=== PATIENT | female | born 1960 | race Caucasian/White ===

== ENCOUNTER → 2024-11-17 10:03 | Outpatient (REF) | payer OTHER, SELFPAY | LOC: RST 10:03 | PROVIDERS: ATTENDING PHYSICIAN Internal Medicine; FAMILY PHYSICIAN Registered Nurse | DX: R13.19 Other dysphagia (principal) | CPT/HCPCS: 74230; 92611 ==

== ENCOUNTER → 2024-12-12 11:42 | Outpatient (REF) | payer OTHER, SELFPAY | LOC: DHSLP 11:42 | PROVIDERS: ATTENDING PHYSICIAN Internal Medicine; FAMILY PHYSICIAN Specialist | DX: G47.33 Obstructive sleep apnea (adult) (pediatric) (principal); R06.83 Snoring; E66.9 Obesity, unspecified; R13.19 Other dysphagia; K21.9 Gastro-esophageal reflux disease without esophagitis; R09.02 Hypoxemia; Z68.42 Body mass index [BMI] 45.0-49.9, adult | CPT/HCPCS: 95800 ==

== ENCOUNTER → 2025-01-02 14:18 | Outpatient (REF) | payer OTHER, SELFPAY | LOC: RAD 14:18 | PROVIDERS: ATTENDING PHYSICIAN Nurse Practitioner Family; FAMILY PHYSICIAN Registered Nurse | DX: R05.3 Chronic cough (principal) | CPT/HCPCS: 71046 ==